=== PATIENT | male | born 1955 | race African-American/Black ===

== ENCOUNTER 2020-07-19 01:34 | Emergency (ER) | payer OTHER ==
[~2020-07-19] VITALS: Ht 172.7 cm; Wt 63.5 kg
[2020-07-19 07:50] VITALS: BP 120/67
== END 2020-07-19 08:51 | disposition home or self-care (01) ==
LOC: EDBD 01:34 → ER 01:34
DX: F10.129 Alcohol abuse with intoxication, unspecified (principal); Y90.9 Presence of alcohol in blood, level not specified